=== PATIENT | female | born 1965 | race Caucasian/White ===

== ENCOUNTER 2019-12-22 10:43 | Emergency (ER) | payer BC ==
[~2019-12-22] VITALS: Ht 172.7 cm; Wt 72.7 kg
[2019-12-22 10:56] VITALS: TEMP 97.9
[2019-12-22] MEDS ORDERED: MEDROL 4MG DOSPA4 MG PO (11:52)
[2019-12-22] MEDS ORDERED: SYNTHROID0.1 MG/TAB PO (11:53)
[2019-12-22] MEDS ORDERED: ZOVIRAX400 MG PO (11:54)
[2019-12-22] MEDS ORDERED: PLAQUENIL 200M200 MG PO (11:54)
[2019-12-22] MEDS ORDERED: ALBUTEROL0.83 MG/ML IH (11:54)
[2019-12-22] MEDS ORDERED: RESTORIL 1515 MG/CAP PO (11:55)
[2019-12-22] MEDS ORDERED: PROAIR HFA0.09 MG/AC IH (11:55)
[2019-12-22 12:45] LABS: BASO # 0.1 (0.0-0.2); BASO % 0.7 % (0.0-2.0); EOS # 0.1 (0.0-0.7); EOS % 1.1 % (0-4.0); GRAN % 68.9 % (42.2-75.2); HEMATOCRIT 40.5 % (37.0-47.0); HEMOGLOBIN 12.8 g/dl (12.5-16.0); LYMPH # 1.7 (1.2-3.4); LYMPH % 23.5 % (20.0-51.0); MEAN CELL VOLUME 94 fl (80.0-100.0); MEAN CORPUSCULAR HEMOGLOBIN 30 pg (27.0-31.0); MEAN CORPUSCULAR HGB CONC 32 g/dl (33.0-37.0); MEAN PLATELET VOLUME 10.7 fl (7.4-10.4); MONO # 0.4 (0.1-0.6); MONO % 5.8 % (1.7-9.3); PLATELET COUNT 262 K/mm3 (130-400); RED BLOOD COUNT 4.32 M/mm3 (4.10-5.30); REDCELL DISTRIBUTION WIDTH-CV 12.4 % (11.5-14.5)
[2019-12-22 12:57] LABS: ALANINE AMINOTRANSFERASE 21 U/L (4-34); ALBUMIN 4.1 gm/dL (3.5-5.0); ALKALINE PHOSPHATASE 52 U/L (50-136); ANION GAP 5 mmol/L (7-16); AST,SGOT 20 U/L (15-37); BILIRUBIN,TOTAL 0.5 mg/dL (0.0-1.0); BLOOD UREA NITROGEN 16 mg/dL (7-17); CALCIUM 9.3 mg/dL (8.4-10.2); CARBON DIOXIDE 29 mmol/L (22-30); CHLORIDE 105 mmol/L (98-107); CREATININE, serum 0.68 (0.52-1.25); GLUCOSE 106 mg/dL (74-106); POTASSIUM 4.4 mmol/L (3.4-5.0); SODIUM 139 mmol/L (137-145); TOTAL PROTEIN 6.9 gm/dL (6.4-8.2)
[2019-12-22 12:58] LABS: C-REACTIVE PROTEIN < 0.5 mg/dL (0.0-0.9)
[2019-12-22] MEDS ORDERED: LEVAQUIN 750MG750 M1 PO (14:34)
[2019-12-22] MEDS ORDERED: PREDNISONE20 MG PO (14:35)
[2019-12-22] MEDS ORDERED: TUSS PO (14:38)
[2019-12-22 14:40] VITALS: BP 101/83; PULSE 86
== END 2019-12-22 14:55 | disposition home or self-care (01) ==
LOC: COL.ER 10:43
PROVIDERS: Emergency Medicine
DX: J20.9 Acute bronchitis, unspecified (principal); J45.909 Unspecified asthma, uncomplicated; M06.9 Rheumatoid arthritis, unspecified
CPT/HCPCS: J7512